=== PATIENT | male | born 1955 | race Caucasian/White ===

== ENCOUNTER 2017-11-13 15:39 | Inpatient (IN) | payer MEDICARE, BC ==
[2017-11-13] MEDS ORDERED: DOCUSATE SODIUM 100 MG CAP PO (16:30)
[2017-11-13] MEDS ORDERED: ZOLPIDEM 5 MG TAB PO (16:30)
[2017-11-13] MEDS ORDERED: NACL 0.9% 3 ML SYG IV (16:30)
[2017-11-13] MEDS ORDERED: MAGNESIUM HYDROXIDE 30ML CUP PO (16:30)
[2017-11-13] MEDS ORDERED: ACETAMINOPHEN 325 MG TAB PO (16:30)
[2017-11-13] MEDS ORDERED: OCULAR LUBRICANT 3.5 GM OPH OINT BOTH EYES (17:00)
[2017-11-13] MEDS ORDERED: ACETAMINOPHEN 650 MG SUPP PR (17:00)
[2017-11-13] MEDS ORDERED: DEXTROSE 50% 50 ML SYRINGE IV ×3 (17:30→18:30)
[2017-11-13] MEDS ORDERED: DILTIAZEM 25 MG INJ IV (17:30)
[2017-11-13] MEDS ORDERED: GLUCAGON 1 MG INJ IM ×2 (17:30→18:30)
[2017-11-13] MEDS ORDERED: GLUCOSE GEL 15 GRAM TUBE BUCCAL (17:30)
[2017-11-13] MEDS ORDERED: GLUCOSE GEL 15 GRAM TUBE PO ×2 (17:30)
[2017-11-13] MEDS ORDERED: COLLAGENASE 5 GM (UD JAR) TOP (17:30)
[2017-11-13] MEDS: Insulin NOVOLOG SS Algorithm ONE SC (18:21)
[2017-11-13] MEDS ORDERED: LABETALOL HCL 20MG INJ IV (18:30)
[2017-11-13] MEDS ORDERED: SODIUM HYPOCHLORITE (1/40) 1 APPLIC BTL IRR (19:00)
[2017-11-13] MEDS ORDERED: NITROGLYCERIN (SL) 0.4 MG TAB SL (19:00)
[2017-11-13] MEDS ORDERED: ONDANSETRON 4 MG INJ IV (19:00)
[2017-11-13] MEDS ORDERED: MICONAZOLE 2% 57 GM Ointment TOP (19:00)
[2017-11-13] MEDS ORDERED: NALOXONE (0.4 MG/ML) INJ IV (19:00)
[2017-11-13] MEDS: ACETYLCYSTEINE 20% 4 ML VIAL INH (21:05)
[2017-11-13] MEDS: IPRATROPIUM (NEB) 0.5 MG/2.5 ML AMP INH (21:05)
[2017-11-13] MEDS: BUDESONIDE (NEB) 0.5MG/2ML AMP INH (21:05)
[2017-11-13] MEDS: LEVALBUTEROL (NEB) 0.63 MG/3 ML AMP INH (21:05)
[2017-11-13] MEDS: FERROUS SULFATE 60 MG/ML 5ML CUP GTB (21:40)
[2017-11-13] MEDS: PANTOPRAZOLE 40 MG INJ IV (21:41)
[2017-11-13] MEDS: METOPROLOL 50 MG TAB GTB (21:41)
[2017-11-13] MEDS: VORICONAZOLE 200 MG TAB GTB (21:41)
[2017-11-13] MEDS: MEROPENEM 500MG/50 ML (PMX) 50 ML IVPB (21:42)
[2017-11-13] MEDS: MICONAZOLE 2% 57 GM Ointment TOP (21:45)
[2017-11-13] MEDS: BALSAM PERU/CASTOR OIL 60 GM TUBE TOP (21:45)
[2017-11-14] MEDS: NYSTATIN SUSP 5 ML CUP PO ×5 (00:55→23:51)
[2017-11-14] MEDS: DILTIAZEM 30 MG TAB PEG ×5 (00:56→23:15)
[2017-11-14] MEDS: IPRATROPIUM (NEB) 0.5 MG/2.5 ML AMP INH ×4 (02:23→20:45)
[2017-11-14] MEDS: LEVALBUTEROL (NEB) 0.63 MG/3 ML AMP INH ×4 (02:23→20:45)
[2017-11-14] MEDS: HYDROCODONE/APAP (5/325) TAB PO (04:09)
[2017-11-14] MEDS: Insulin NOVOLOG SS Algorithm ONE SC ×5 (06:00→23:51)
[2017-11-14] MEDS: METOPROLOL 50 MG TAB GTB ×3 (06:00→22:00)
[2017-11-14 06:11] LABS: ADD MAN DIFF? NO
[2017-11-14 06:13] LABS: WHITE BLOOD COUNT 8.3 10^3/ul (4.8-10.8)
[2017-11-14 06:13] LABS: EOSINOPHILS # 0.1 10^3/ul (0.0-0.5); EOSINOPHILS % 0.6 % (0.0-7.0); HEMATOCRIT 23.9 % (42.0-52.0); HEMOGLOBIN 7.4 g/dl (14.0-18.0); LYMPHOCYTES # 0.8 10^3/ul (0.8-2.9); LYMPHOCYTES % 9.9 % (15.0-51.0); MEAN CORPUSCULAR HEMOGLOBIN 31.9 pg (29.0-33.0); MEAN PLATELET VOLUME 9.7 fl (7.4-10.4); MONOCYTE # 0.8 10^3/ul (0.3-0.9); MONOCYTES % 9.7 % (0.0-11.0); NEUTROPHIL # 6.6 10^3/ul (1.6-7.5); PLATELET COUNT 229 10^3/UL (140-415); RED BLOOD COUNT 2.32 10^6/ul (4.70-6.10); RED CELL DISTRIBUTION WIDTH 18.3 % (11.5-14.5)
[2017-11-14 06:46] LABS: ANION GAP 16 (8-16); BLOOD UREA NITROGEN 78 mg/dl (7-20); CALCIUM 8.8 mg/dl (8.4-10.2); CARBON DIOXIDE 25 mmol/L (21-31); CHLORIDE 103 mmol/L (97-110); CREATININE 2.19 mg/dl (0.61-1.24); GLUCOSE 113 mg/dl (70-220); MAGNESIUM 2.3 mg/dl (1.7-2.5); PHOSPHORUS 5.1 mg/dl (2.5-4.9); POTASSIUM 3.9 mmol/L (3.5-5.1); SODIUM 140 mmol/L (135-144)
[2017-11-14] MEDS: BUDESONIDE (NEB) 0.5MG/2ML AMP INH ×2 (09:10→20:45)
[2017-11-14] MEDS: ACETYLCYSTEINE 20% 4 ML VIAL INH ×2 (09:10→20:45)
[2017-11-14] MEDS: DAPSONE 100 MG TAB GTB (09:23)
[2017-11-14] MEDS: FERROUS SULFATE 60 MG/ML 5ML CUP GTB ×2 (09:23→20:31)
[2017-11-14] MEDS: COLLAGENASE 5 GM (UD JAR) TOP (09:23)
[2017-11-14] MEDS: predniSONE 20 MG TAB GTB (09:23)
[2017-11-14] MEDS: DALIRESP 500 MCG GTB (09:23)
[2017-11-14] MEDS: AMIODARONE 200 MG TAB GTB (09:24)
[2017-11-14] MEDS: VORICONAZOLE 200 MG TAB GTB ×2 (09:24→20:31)
[2017-11-14] MEDS: SODIUM HYPOCHLORITE (1/40) 1 APPLIC BTL IRR (09:25)
[2017-11-14] MEDS: MICONAZOLE 2% 57 GM Ointment TOP ×3 (09:25→20:32)
[2017-11-14] MEDS: BALSAM PERU/CASTOR OIL 60 GM TUBE TOP ×2 (09:25→20:32)
[2017-11-14] MEDS: PANTOPRAZOLE 40 MG INJ IV ×2 (09:25→20:31)
[2017-11-14] MEDS: MEROPENEM 500MG/50 ML (PMX) 50 ML IVPB ×2 (09:25→20:31)
[2017-11-14] MEDS ORDERED: DIGOXIN 0.05 MG/ML GTB (13:00)
[2017-11-14] MEDS: DIGOXIN 0.05 MG/ML GTB (18:11)
[2017-11-15] MEDS: LEVALBUTEROL (NEB) 0.63 MG/3 ML AMP INH ×4 (01:29→20:15)
[2017-11-15] MEDS: IPRATROPIUM (NEB) 0.5 MG/2.5 ML AMP INH ×4 (01:29→20:15)
[2017-11-15] MEDS: METOPROLOL 50 MG TAB GTB ×3 (05:38→22:00)
[2017-11-15] MEDS: DILTIAZEM 30 MG TAB PEG ×3 (05:38→17:08)
[2017-11-15] MEDS: Insulin NOVOLOG SS Algorithm ONE SC ×3 (06:00→17:15)
[2017-11-15] MEDS: NYSTATIN SUSP 5 ML CUP PO ×3 (06:45→17:08)
[2017-11-15 07:58] LABS: ANION GAP 19 (8-16); BLOOD UREA NITROGEN 98 mg/dl (7-20); CALCIUM 8.6 mg/dl (8.4-10.2); CARBON DIOXIDE 23 mmol/L (21-31); CHLORIDE 102 mmol/L (97-110); CREATININE 2.54 mg/dl (0.61-1.24); GLUCOSE 104 mg/dl (70-220); POTASSIUM 3.8 mmol/L (3.5-5.1); SODIUM 140 mmol/L (135-144)
[2017-11-15] MEDS: ACETYLCYSTEINE 20% 4 ML VIAL INH ×2 (08:30→20:16)
[2017-11-15] MEDS: BUDESONIDE (NEB) 0.5MG/2ML AMP INH ×2 (08:30→20:15)
[2017-11-15] MEDS: MEROPENEM 500MG/50 ML (PMX) 50 ML IVPB ×2 (09:36→22:13)
[2017-11-15] MEDS: BALSAM PERU/CASTOR OIL 60 GM TUBE TOP ×2 (09:40→22:15)
[2017-11-15] MEDS: FERROUS SULFATE 60 MG/ML 5ML CUP GTB ×2 (09:40→22:14)
[2017-11-15] MEDS: PANTOPRAZOLE 40 MG INJ IV ×2 (09:40→22:14)
[2017-11-15] MEDS: predniSONE 20 MG TAB GTB (09:42)
[2017-11-15] MEDS: COLLAGENASE 5 GM (UD JAR) TOP (09:42)
[2017-11-15] MEDS: AMIODARONE 200 MG TAB GTB (09:42)
[2017-11-15] MEDS: VORICONAZOLE 200 MG TAB GTB ×2 (09:42→22:14)
[2017-11-15] MEDS: DAPSONE 100 MG TAB GTB (09:42)
[2017-11-15] MEDS: SODIUM HYPOCHLORITE (1/40) 1 APPLIC BTL IRR (10:00)
[2017-11-15 11:32] LABS: PARTIAL THROMBOPLASTIN TIME 25.7 Sec (25.0-35.0); PROTIME 13.3 Sec (11.9-14.9)
[2017-11-15] MEDS: DALIRESP 500 MCG GTB (12:35)
[2017-11-15] MEDS: MICONAZOLE 2% 57 GM Ointment TOP ×3 (12:54→22:16)
[2017-11-16] MEDS: Insulin NOVOLOG SS Algorithm ONE SC
[2017-11-16] MEDS: NYSTATIN SUSP 5 ML CUP PO ×5 (00:01→17:02)
[2017-11-16] MEDS: ALBUMIN HUMAN 25% 100 ML IV (02:03)
[2017-11-16] MEDS: IPRATROPIUM (NEB) 0.5 MG/2.5 ML AMP INH ×4 (02:15→21:28)
[2017-11-16] MEDS: LEVALBUTEROL (NEB) 0.63 MG/3 ML AMP INH ×4 (02:15→21:29)
[2017-11-16] MEDS: DILTIAZEM 30 MG TAB PEG ×6 (02:57→17:02)
[2017-11-16] MEDS: METOPROLOL 50 MG TAB GTB ×3 (03:00→21:05)
[2017-11-16] MEDS: INSULIN ASPART [NOVOLOG] 3 ML PEN SC ×5 (05:00→21:00)
[2017-11-16] MEDS: predniSONE 20 MG TAB GTB ×2 (08:24→14:02)
[2017-11-16] MEDS: FERROUS SULFATE 60 MG/ML 5ML CUP GTB ×3 (08:24→23:17)
[2017-11-16] MEDS: AMIODARONE 200 MG TAB GTB ×2 (08:24→14:01)
[2017-11-16] MEDS: DAPSONE 100 MG TAB GTB ×2 (08:24→14:02)
[2017-11-16] MEDS: VORICONAZOLE 200 MG TAB GTB ×3 (08:24→21:12)
[2017-11-16] MEDS: DALIRESP 500 MCG GTB (08:24)
[2017-11-16] MEDS: SODIUM HYPOCHLORITE (1/40) 1 APPLIC BTL IRR (08:24)
[2017-11-16] MEDS: BALSAM PERU/CASTOR OIL 60 GM TUBE TOP ×2 (08:25→21:11)
[2017-11-16] MEDS: MICONAZOLE 2% 57 GM Ointment TOP ×3 (08:25→21:11)
[2017-11-16] MEDS: COLLAGENASE 5 GM (UD JAR) TOP (08:25)
[2017-11-16] MEDS ORDERED: BACITRACIN 50000 UNITS INJ (08:42)
[2017-11-16] MEDS ORDERED: THROMBIN 5000 UNIT VIAL ×2 (08:44→09:43)
[2017-11-16] MEDS ORDERED: GELATIN SIZE 100 SPONGE (08:44)
[2017-11-16] MEDS ORDERED: BACITRACIN 0.9 GM OINT (08:48)
[2017-11-16] MEDS: ACETYLCYSTEINE 20% 4 ML VIAL INH ×2 (08:56→21:30)
[2017-11-16] MEDS: MEROPENEM 500MG/50 ML (PMX) 50 ML IVPB ×2 (09:00→13:17)
[2017-11-16] MEDS: PANTOPRAZOLE 40 MG INJ IV ×3 (09:00→21:12)
[2017-11-16] MEDS: BUDESONIDE (NEB) 0.5MG/2ML AMP INH ×2 (09:06→20:00)
[2017-11-16 09:20] LABS: ABNORMAL IP MESSAGE 1; HEMATOCRIT 22.3 % (42.0-52.0); MEAN CORPUSCULAR HEMOGLOBIN 31.1 pg (29.0-33.0); MEAN CORPUSCULAR HGB CONC 30.9 g/dl (32.0-37.0); MEAN CORPUSCULAR VOLUME 100.5 fl (82.0-101.0); MEAN PLATELET VOLUME 9.6 fl (7.4-10.4); PLATELET COUNT 216 10^3/UL (140-415); POSITIVE DIFF @See below; RED BLOOD COUNT 2.22 10^6/ul (4.70-6.10); RED CELL DISTRIBUTION WIDTH 17.6 % (11.5-14.5)
[2017-11-16 09:20] LABS: WHITE BLOOD COUNT 7.3 10^3/ul (4.8-10.8)
[2017-11-16] MEDS ORDERED: BACITRACIN/POLYMYXIN 28.35 GM OINT TOP (09:20)
[2017-11-16 09:23] LABS: IMMEDIATE SPIN CROSSMATCH 1 5
[2017-11-16] MEDS: LEVETIRACETAM 1000 MG (PMX) 100 ML IVPB ×2 (09:27→14:01)
[2017-11-16 09:32] LABS: ADD MAN DIFF? YES; HEMOGLOBIN 6.9 g/dl (14.0-18.0); PATH REVIEW? YES
[2017-11-16 10:31] LABS: ANISOCYTOSIS 2+ (0-0); BAND NEUTROPHILS #M 0.1 10^3/ul (0.0-0.6); BAND NEUTROPHILS % (M) 2 % (0-4); LYMPHOCYTES #M 0.5 10^3/ul (0.8-2.9); LYMPHOCYTES % (M) 7 % (15-51); MICROCYTOSIS 2+ (0-0); MONOCYTE #M 0.4 10^3/ul (0.3-0.9); MONOCYTES % (M) 6 % (0-11); PLATELET ESTIMATE NORMAL; POIKILOCYTOSIS 1+ (0-0); POLYCHROMASIA 3+ (0-0); SEG NEUT #M 6.2 10^3/ul (1.6-7.5); SEGMENTED NEUTROPHILS (M) % 85 % (39-77); SMUDGE%M 15 % (0-0)
[2017-11-16] MEDS ORDERED: METOPROLOL 5 MG INJ IV (13:00)
[2017-11-16] MEDS ORDERED: PENDING SANTYL ORDER FOR WOUND CARE XX (18:00)
[2017-11-16 18:44] LABS: CREATINE KINASE 59 IU/L (23-200)
[2017-11-16 18:58] LABS: CK INDEX 20.3
[2017-11-16 19:01] LABS: TROPONIN-I 0.155 ng/ml (0.000-0.120)
[2017-11-17] MEDS: INSULIN ASPART [NOVOLOG] 3 ML PEN SC ×6 (01:00→21:00)
[2017-11-17 01:09] LABS: CREATINE KINASE 63 IU/L (23-200)
[2017-11-17 01:22] LABS: CK INDEX 17.5
[2017-11-17 01:24] LABS: TROPONIN-I 0.182 ng/ml (0.000-0.120)
[2017-11-17] MEDS: LEVALBUTEROL (NEB) 0.63 MG/3 ML AMP INH ×4 (01:42→20:25)
[2017-11-17] MEDS: IPRATROPIUM (NEB) 0.5 MG/2.5 ML AMP INH ×4 (01:42→20:25)
[2017-11-17] MEDS: METOPROLOL 50 MG TAB GTB ×3 (06:01→21:18)
[2017-11-17] MEDS: NYSTATIN SUSP 5 ML CUP PO ×4 (06:01→23:44)
[2017-11-17] MEDS: DILTIAZEM 30 MG TAB PEG ×4 (06:01→23:45)
[2017-11-17] MEDS: HYDROCODONE/APAP (5/325) TAB PO (06:06)
[2017-11-17 06:35] LABS: ADD MAN DIFF? NO
[2017-11-17 06:49] LABS: WHITE BLOOD COUNT 7.4 10^3/ul (4.8-10.8)
[2017-11-17 06:49] LABS: BASOPHILS % 0.1 % (0.0-2.0); EOSINOPHILS # 0.1 10^3/ul (0.0-0.5); EOSINOPHILS % 0.7 % (0.0-7.0); HEMATOCRIT 27.4 % (42.0-52.0); HEMOGLOBIN 8.4 g/dl (14.0-18.0); LYMPHOCYTES # 0.9 10^3/ul (0.8-2.9); LYMPHOCYTES % 11.4 % (15.0-51.0); MEAN CORPUSCULAR HEMOGLOBIN 30.3 pg (29.0-33.0); MEAN CORPUSCULAR HGB CONC 30.7 g/dl (32.0-37.0); MEAN CORPUSCULAR VOLUME 98.9 fl (82.0-101.0); MEAN PLATELET VOLUME 9.4 fl (7.4-10.4); NEUTROPHIL # 5.5 10^3/ul (1.6-7.5); NEUTROPHILS % 74.1 % (39.0-77.0); PLATELET COUNT 225 10^3/UL (140-415); RED BLOOD COUNT 2.77 10^6/ul (4.70-6.10); RED CELL DISTRIBUTION WIDTH 19.8 % (11.5-14.5)
[2017-11-17 07:05] LABS: ANION GAP 15 (8-16); BLOOD UREA NITROGEN 69 mg/dl (7-20); CALCIUM 8.5 mg/dl (8.4-10.2); CARBON DIOXIDE 26 mmol/L (21-31); CHLORIDE 102 mmol/L (97-110); CREATINE KINASE 68 IU/L (23-200); CREATININE 1.94 mg/dl (0.61-1.24); GLUCOSE 97 mg/dl (70-220); SODIUM 139 mmol/L (135-144)
[2017-11-17 07:13] LABS: CK INDEX 17.1
[2017-11-17 07:18] LABS: TROPONIN-I 0.174 ng/ml (0.000-0.120)
[2017-11-17] MEDS: ACETYLCYSTEINE 20% 4 ML VIAL INH ×2 (08:09→20:26)
[2017-11-17] MEDS: BUDESONIDE (NEB) 0.5MG/2ML AMP INH ×2 (08:09→20:26)
[2017-11-17] MEDS: MEROPENEM 500MG/50 ML (PMX) 50 ML IVPB ×2 (09:25→21:16)
[2017-11-17] MEDS: FERROUS SULFATE 60 MG/ML 5ML CUP GTB ×2 (09:26→21:11)
[2017-11-17] MEDS: PANTOPRAZOLE 40 MG INJ IV ×2 (09:26→21:11)
[2017-11-17] MEDS: VORICONAZOLE 200 MG TAB GTB ×2 (09:27→21:11)
[2017-11-17] MEDS: COLLAGENASE 5 GM (UD JAR) TOP (09:27)
[2017-11-17] MEDS: BALSAM PERU/CASTOR OIL 60 GM TUBE TOP ×2 (09:28→21:12)
[2017-11-17] MEDS: SODIUM HYPOCHLORITE (1/40) 1 APPLIC BTL IRR (09:28)
[2017-11-17] MEDS: MICONAZOLE 2% 57 GM Ointment TOP ×3 (09:29→21:12)
[2017-11-17] MEDS: LEVETIRACETAM 1000 MG (PMX) 100 ML IVPB ×2 (09:33→21:11)
[2017-11-17] MEDS: ROFLUMILAST 500 MCG TABLET GTB (11:37)
[2017-11-17] MEDS: DIGOXIN 0.05 MG/ML GTB (12:57)
[2017-11-17] MEDS: ALBUMIN HUMAN 25% 100 ML IV (14:33)
[2017-11-17] MEDS: HEPARIN 1000 UNITS/ML 10 ML INJ CATHETER (15:28)
[2017-11-17] MEDS: EPOETIN 10000 UNITS/1 ML INJ (ESRD) SC (17:25)
[2017-11-17] MEDS: SOD CHLORIDE 0.9% 1,000 ML IV (21:52)
[2017-11-18] MEDS: INSULIN ASPART [NOVOLOG] 3 ML PEN SC ×6 (01:00→21:00)
[2017-11-18] MEDS: IPRATROPIUM (NEB) 0.5 MG/2.5 ML AMP INH ×4 (02:19→20:24)
[2017-11-18] MEDS: LEVALBUTEROL (NEB) 0.63 MG/3 ML AMP INH ×4 (02:19→20:24)
[2017-11-18] MEDS: METOPROLOL 50 MG TAB GTB ×3 (05:42→22:02)
[2017-11-18] MEDS: DILTIAZEM 30 MG TAB PEG ×3 (05:42→18:44)
[2017-11-18] MEDS: NYSTATIN SUSP 5 ML CUP PO ×3 (05:43→19:45)
[2017-11-18 06:48] LABS: ADD MAN DIFF? NO
[2017-11-18 06:54] LABS: BASOPHILS % 0.3 % (0.0-2.0); EOSINOPHILS # 0.1 10^3/ul (0.0-0.5); EOSINOPHILS % 0.8 % (0.0-7.0); HEMATOCRIT 29.8 % (42.0-52.0); HEMOGLOBIN 9.7 g/dl (14.0-18.0); LYMPHOCYTES # 0.8 10^3/ul (0.8-2.9); LYMPHOCYTES % 10.7 % (15.0-51.0); MEAN CORPUSCULAR HEMOGLOBIN 31.1 pg (29.0-33.0); MEAN CORPUSCULAR HGB CONC 32.6 g/dl (32.0-37.0); MEAN CORPUSCULAR VOLUME 95.5 fl (82.0-101.0); MEAN PLATELET VOLUME 9.6 fl (7.4-10.4); MONOCYTE # 0.9 10^3/ul (0.3-0.9); MONOCYTES % 12.2 % (0.0-11.0); NEUTROPHIL # 5.6 10^3/ul (1.6-7.5); NEUTROPHILS % 75.5 % (39.0-77.0); PLATELET COUNT 208 10^3/UL (140-415); RED BLOOD COUNT 3.12 10^6/ul (4.70-6.10); RED CELL DISTRIBUTION WIDTH 19.9 % (11.5-14.5)
[2017-11-18 06:54] LABS: WHITE BLOOD COUNT 7.4 10^3/ul (4.8-10.8)
[2017-11-18] MEDS ORDERED: CEFAZOLIN 1 GM INJ (07:00)
[2017-11-18 07:13] LABS: ANION GAP 14 (8-16); BLOOD UREA NITROGEN 39 mg/dl (7-20); CALCIUM 8.7 mg/dl (8.4-10.2); CARBON DIOXIDE 27 mmol/L (21-31); CHLORIDE 101 mmol/L (97-110); GLUCOSE 90 mg/dl (70-220); MAGNESIUM 1.9 mg/dl (1.7-2.5); PHOSPHORUS 3.6 mg/dl (2.5-4.9); POTASSIUM 3.4 mmol/L (3.5-5.1); SODIUM 139 mmol/L (135-144)
[2017-11-18] MEDS: COLLAGENASE 5 GM (UD JAR) TOP (08:15)
[2017-11-18] MEDS: PANTOPRAZOLE 40 MG INJ IV ×3 (08:15→20:42)
[2017-11-18] MEDS: LEVETIRACETAM 1000 MG (PMX) 100 ML IVPB ×2 (08:15→22:39)
[2017-11-18] MEDS: MEROPENEM 500MG/50 ML (PMX) 50 ML IVPB ×2 (08:15→22:39)
[2017-11-18] MEDS: MICONAZOLE 2% 57 GM Ointment TOP ×2 (08:16)
[2017-11-18] MEDS: BALSAM PERU/CASTOR OIL 60 GM TUBE TOP ×2 (08:16→21:59)
[2017-11-18] MEDS: SODIUM HYPOCHLORITE (1/40) 1 APPLIC BTL IRR (08:17)
[2017-11-18] MEDS: BUDESONIDE (NEB) 0.5MG/2ML AMP INH ×2 (08:22→20:23)
[2017-11-18] MEDS: ACETYLCYSTEINE 20% 4 ML VIAL INH ×2 (08:22→20:24)
[2017-11-18] MEDS: FERROUS SULFATE 60 MG/ML 5ML CUP GTB ×2 (09:00→21:57)
[2017-11-18] MEDS: predniSONE 20 MG TAB GTB (09:00)
[2017-11-18] MEDS: AMIODARONE 200 MG TAB GTB (09:00)
[2017-11-18] MEDS: ROFLUMILAST 500 MCG TABLET GTB (09:00)
[2017-11-18] MEDS: DAPSONE 100 MG TAB GTB (09:00)
[2017-11-18] MEDS: VORICONAZOLE 200 MG TAB GTB ×2 (09:00→21:57)
[2017-11-18] MEDS ORDERED: NEOMYC/POLYMYX/BACIT 30 GM OINT (09:12)
[2017-11-18] MEDS: SOD CHLORIDE 0.9% 1,000 ML IV ×3 (10:00→22:02)
[2017-11-18] MEDS ORDERED: HYDROmorphONE 1 MG/5 ML IV SYRINGE IV ×3 (11:00)
[2017-11-18] MEDS ORDERED: LIDOCAINE 2% (SDV) 5 ML INJ (11:00)
[2017-11-18] MEDS ORDERED: MEPERIDINE 25 MG INJ IV (11:00)
[2017-11-18] MEDS ORDERED: ROCURONIUM 50 MG INJ (11:00)
[2017-11-18] MEDS ORDERED: PROPOFOL 20 ML (11:00)
[2017-11-18] MEDS ORDERED: OXYCODONE/ACETAMINOPHEN (5/325) TAB PO ×2 (11:00)
[2017-11-18] MEDS ORDERED: hydrALAzine 20 MG INJ IV (11:00)
[2017-11-18] MEDS ORDERED: GLYCOPYRROLATE 0.4 MG INJ (11:00)
[2017-11-18] MEDS ORDERED: DIPHENHYDRAMINE 50 MG INJ IV (11:00)
[2017-11-18] MEDS ORDERED: LABETALOL HCL 20MG INJ IV (11:00)
[2017-11-18] MEDS ORDERED: ATROPINE 1 MG/10 ML SYRINGE IV (11:00)
[2017-11-18] MEDS ORDERED: MIDAZOLAM 1 MG/ML 2 ML INJ IV (11:00)
[2017-11-18] MEDS ORDERED: morphine (1 MG/ML) 10ML SYRINGE IV ×3 (11:00)
[2017-11-18] MEDS ORDERED: FENTAnyl 50 MCG/ML VIAL IV ×2 (11:00)
[2017-11-18] MEDS ORDERED: EPHEDrine SULFATE 50 MG/5 ML SYG IV (11:00)
[2017-11-18] MEDS ORDERED: NEOSTIGMINE 3 MG/3 ML SYRINGE (11:00)
[2017-11-18] MEDS ORDERED: ONDANSETRON 4 MG INJ IV (11:00)
[2017-11-18] MEDS ORDERED: MIDAZOLAM 1 MG/ML 2 ML INJ ×2 (11:01→13:50)
[2017-11-18] MEDS ORDERED: FENTAnyl 50 MCG/ML VIAL ×2 (11:03→13:50)
[2017-11-18] MEDS ORDERED: DEXAMETHASONE 4 MG/ML 1 ML INJ (11:03)
[2017-11-18] MEDS ORDERED: ONDANSETRON 4 MG INJ (11:03)
[2017-11-18] MEDS ORDERED: OCULAR LUBRICANT 3.5 GM OPH OINT (13:49)
[2017-11-18] MEDS ORDERED: SUGAMMADEX SODIUM 200 MG/2 ML VIAL IV (13:53)
[2017-11-18] MEDS: LIDOCAINE 1%/EPI 30 ML INJ (14:08)
[2017-11-18] MEDS: BACITRACIN 50000 UNITS INJ IRR (14:37)
[2017-11-18] MEDS: THROMBIN 5000 UNIT VIAL (14:38)
[2017-11-18] MEDS: GELATIN SIZE 100 SPONGE (14:39)
[2017-11-18] MEDS ORDERED: THROMBIN 5000 UNIT VIAL (15:12)
[2017-11-18] MEDS ORDERED: FLUMAZENIL 0.5 MG INJ (15:46)
[2017-11-18] MEDS ORDERED: BACITRACIN 0.9 GM OINT (16:17)
[2017-11-18] MEDS ORDERED: HYDROmorphONE 0.5 MG/0.5 ML SYG IV (17:00)
[2017-11-18] MEDS: CEFAZOLIN 2 GM/50 ML (PMX) 50 ML IVPB (18:31)
[2017-11-18] MEDS ORDERED: MICONAZOLE 2% 30 GM CR TOP (22:30)
[2017-11-18] MEDS: MICONAZOLE 2% 30 GM CR TOP (22:40)
[2017-11-18 23:30] LABS: AADO2 Arterial 125.1 mmHg (7.0-24.0); Allen Test ACCEPTAB; Arterial Base Excess -2.3 mmol/L (-3.0-3); Arterial Blood Gas Oxygen Sat 97.9 mmHG (95.0-98.0); Arterial COHb 0.3 % (0.0-3.0); Arterial Fraction of Oxyhgb 97.2 % (93.0-99.0); Arterial HCO3 21.9 mmol/L (22.0-26.0); Arterial MetHb 0.4 % (0.0-1.5); Arterial Total Hemglobin 10.7 g/dl (12.0-18.0); Arterial pCO2 35.8 mmhg (35-45); MODE TRACH COLLAR; Site Right Radial
[2017-11-19] MEDS: NYSTATIN SUSP 5 ML CUP PO ×4 (00:36→17:07)
[2017-11-19] MEDS: DILTIAZEM 30 MG TAB PEG ×4 (00:36→17:10)
[2017-11-19] MEDS: INSULIN ASPART [NOVOLOG] 3 ML PEN SC ×6 (00:38→21:00)
[2017-11-19] MEDS: IPRATROPIUM (NEB) 0.5 MG/2.5 ML AMP INH ×4 (01:39→20:20)
[2017-11-19] MEDS: LEVALBUTEROL (NEB) 0.63 MG/3 ML AMP INH ×4 (01:39→20:20)
[2017-11-19] MEDS: SOD CHLORIDE 0.9% 1,000 ML IV ×3 (02:36→23:30)
[2017-11-19] MEDS: METOPROLOL 50 MG TAB GTB ×3 (05:23→22:00)
[2017-11-19 05:31] LABS: ABNORMAL IP MESSAGE 1; ADD MAN DIFF? NO; BASOPHILS % 0.1 % (0.0-2.0); HEMATOCRIT 29.2 % (42.0-52.0); HEMOGLOBIN 9.2 g/dl (14.0-18.0); LYMPHOCYTES # 0.5 10^3/ul (0.8-2.9); LYMPHOCYTES % 4.7 % (15.0-51.0); MEAN CORPUSCULAR HEMOGLOBIN 30.3 pg (29.0-33.0); MEAN CORPUSCULAR HGB CONC 31.5 g/dl (32.0-37.0); MEAN CORPUSCULAR VOLUME 96.1 fl (82.0-101.0); MEAN PLATELET VOLUME 9.7 fl (7.4-10.4); MONOCYTE # 0.5 10^3/ul (0.3-0.9); MONOCYTES % 4.8 % (0.0-11.0); NEUTROPHILS % 89.7 % (39.0-77.0); PLATELET COUNT 223 10^3/UL (140-415); POSITIVE DIFF @See below; RED BLOOD COUNT 3.04 10^6/ul (4.70-6.10); RED CELL DISTRIBUTION WIDTH 19.2 % (11.5-14.5)
[2017-11-19 06:22] LABS: ANION GAP 15 (8-16); BLOOD UREA NITROGEN 52 mg/dl (7-20); CALCIUM 8.6 mg/dl (8.4-10.2); CARBON DIOXIDE 22 mmol/L (21-31); CHLORIDE 107 mmol/L (97-110); CREATININE 1.86 mg/dl (0.61-1.24); GLUCOSE 105 mg/dl (70-220); MAGNESIUM 1.9 mg/dl (1.7-2.5); PHOSPHORUS 6.1 mg/dl (2.5-4.9); POTASSIUM 4.2 mmol/L (3.5-5.1); SODIUM 140 mmol/L (135-144)
[2017-11-19] MEDS: BUDESONIDE (NEB) 0.5MG/2ML AMP INH ×3 (08:34→20:45)
[2017-11-19] MEDS: ACETYLCYSTEINE 20% 4 ML VIAL INH ×2 (08:34→20:20)
[2017-11-19] MEDS: FERROUS SULFATE 60 MG/ML 5ML CUP GTB ×2 (09:24→21:20)
[2017-11-19] MEDS: AMIODARONE 200 MG TAB GTB (09:25)
[2017-11-19] MEDS: BALSAM PERU/CASTOR OIL 60 GM TUBE TOP ×2 (09:25→21:26)
[2017-11-19] MEDS: MICONAZOLE 2% 30 GM CR TOP ×3 (09:25→21:25)
[2017-11-19] MEDS: VORICONAZOLE 200 MG TAB GTB (09:25)
[2017-11-19] MEDS: DAPSONE 100 MG TAB GTB (09:26)
[2017-11-19] MEDS: ROFLUMILAST 500 MCG TABLET GTB (09:27)
[2017-11-19] MEDS: SODIUM HYPOCHLORITE (1/40) 1 APPLIC BTL IRR (09:28)
[2017-11-19] MEDS: LEVETIRACETAM 1000 MG (PMX) 100 ML IVPB ×2 (09:29→21:41)
[2017-11-19] MEDS: MEROPENEM 500MG/50 ML (PMX) 50 ML IVPB ×2 (09:29→22:09)
[2017-11-19] MEDS: predniSONE 20 MG TAB GTB (09:56)
[2017-11-19] MEDS: COLLAGENASE 5 GM (UD JAR) TOP (09:56)
[2017-11-19] MEDS: EPOETIN 10000 UNITS/1 ML INJ (ESRD) SC (18:25)
[2017-11-19] MEDS: PANTOPRAZOLE 40 MG INJ IV (21:20)
[2017-11-19] MEDS: HYDROCODONE/APAP (5/325) TAB PO (22:22)
[2017-11-19] MEDS: VORICONAZOLE IVPB (22:57)
[2017-11-19] MEDS: SOD CHLORIDE 0.9% IVPB (22:57)
[2017-11-20] MEDS: NYSTATIN SUSP 5 ML CUP PO ×4 (00:48→17:25)
[2017-11-20] MEDS: DILTIAZEM 30 MG TAB PEG ×4 (00:48→17:21)
[2017-11-20] MEDS: INSULIN ASPART [NOVOLOG] 3 ML PEN SC ×5 (00:51→17:00)
[2017-11-20] MEDS: morphine 2 MG INJ IV ×2 (01:03→05:13)
[2017-11-20] MEDS: IPRATROPIUM (NEB) 0.5 MG/2.5 ML AMP INH ×4 (01:19→19:58)
[2017-11-20] MEDS: LEVALBUTEROL (NEB) 0.63 MG/3 ML AMP INH ×4 (01:19→19:58)
[2017-11-20] MEDS: SOD CHLORIDE 0.9% 1,000 ML IV (05:24)
[2017-11-20] MEDS: METOPROLOL 50 MG TAB GTB ×3 (05:24→21:09)
[2017-11-20 06:55] LABS: ADD MAN DIFF? NO
[2017-11-20 07:07] LABS: BASOPHILS % 0.1 % (0.0-2.0); EOSINOPHILS % 0.4 % (0.0-7.0); HEMATOCRIT 29.2 % (42.0-52.0); HEMOGLOBIN 9.1 g/dl (14.0-18.0); LYMPHOCYTES # 0.6 10^3/ul (0.8-2.9); LYMPHOCYTES % 8.2 % (15.0-51.0); MEAN CORPUSCULAR HEMOGLOBIN 30.7 pg (29.0-33.0); MEAN CORPUSCULAR HGB CONC 31.2 g/dl (32.0-37.0); MEAN CORPUSCULAR VOLUME 98.6 fl (82.0-101.0); MEAN PLATELET VOLUME 9.9 fl (7.4-10.4); MONOCYTE # 0.6 10^3/ul (0.3-0.9); MONOCYTES % 8.7 % (0.0-11.0); NEUTROPHILS % 81.9 % (39.0-77.0); NUCLEATED RED BLOOD CELLS% 0.3 /100WBC (0.0-0.0); PLATELET COUNT 212 10^3/UL (140-415); POSITIVE DIFF @See below; RED BLOOD COUNT 2.96 10^6/ul (4.70-6.10); RED CELL DISTRIBUTION WIDTH 19.2 % (11.5-14.5)
[2017-11-20 07:07] LABS: WHITE BLOOD COUNT 7.4 10^3/ul (4.8-10.8)
[2017-11-20 07:25] LABS: ANION GAP 16 (8-16); BLOOD UREA NITROGEN 57 mg/dl (7-20); CALCIUM 8.6 mg/dl (8.4-10.2); CARBON DIOXIDE 20 mmol/L (21-31); CHLORIDE 108 mmol/L (97-110); CREATININE 2.01 mg/dl (0.61-1.24); GLUCOSE 80 mg/dl (70-220); MAGNESIUM 1.8 mg/dl (1.7-2.5); PHOSPHORUS 6.6 mg/dl (2.5-4.9); SODIUM 140 mmol/L (135-144)
[2017-11-20] MEDS: ACETYLCYSTEINE 20% 4 ML VIAL INH ×2 (08:20→19:59)
[2017-11-20] MEDS: BUDESONIDE (NEB) 0.5MG/2ML AMP INH ×2 (08:20→19:58)
[2017-11-20] MEDS: SODIUM HYPOCHLORITE (1/40) 1 APPLIC BTL IRR (09:00)
[2017-11-20] MEDS: AMIODARONE 200 MG TAB GTB (09:28)
[2017-11-20] MEDS: ROFLUMILAST 500 MCG TABLET GTB (09:28)
[2017-11-20] MEDS: DAPSONE 100 MG TAB GTB (09:28)
[2017-11-20] MEDS: predniSONE 20 MG TAB GTB (09:28)
[2017-11-20] MEDS: PANTOPRAZOLE 40 MG INJ IV ×2 (09:29→21:07)
[2017-11-20] MEDS: FERROUS SULFATE 60 MG/ML 5ML CUP GTB ×2 (09:29→21:07)
[2017-11-20] MEDS: LEVETIRACETAM 1000 MG (PMX) 100 ML IVPB ×2 (09:30→21:07)
[2017-11-20] MEDS: BALSAM PERU/CASTOR OIL 60 GM TUBE TOP ×2 (09:37→21:08)
[2017-11-20] MEDS: COLLAGENASE 5 GM (UD JAR) TOP (09:38)
[2017-11-20] MEDS: MICONAZOLE 2% 30 GM CR TOP ×3 (09:38→21:08)
[2017-11-20] MEDS: MEROPENEM 500MG/50 ML (PMX) 50 ML IVPB ×2 (09:52→21:08)
[2017-11-20] MEDS: VORICONAZOLE IVPB ×2 (10:27→21:08)
[2017-11-20] MEDS: SOD CHLORIDE 0.9% IVPB ×2 (10:27→21:08)
[2017-11-20] MEDS: HYDROCODONE/APAP (5/325) TAB PO (12:33)
[2017-11-20] MEDS: DIGOXIN 0.05 MG/ML GTB (17:22)
[2017-11-21] MEDS: LEVALBUTEROL (NEB) 0.63 MG/3 ML AMP INH ×4 (01:22→19:57)
[2017-11-21] MEDS: IPRATROPIUM (NEB) 0.5 MG/2.5 ML AMP INH ×4 (01:22→19:57)
[2017-11-21] MEDS: SOD CHLORIDE 0.9% 1,000 ML IV ×2 (01:48→13:00)
[2017-11-21] MEDS: DILTIAZEM 30 MG TAB PEG ×4 (01:48→17:18)
[2017-11-21] MEDS: NYSTATIN SUSP 5 ML CUP PO ×4 (01:48→17:17)
[2017-11-21] MEDS: ACETAMINOPHEN 650MG/20.3ML CUP GTB ×2 (01:54→21:33)
[2017-11-21] MEDS: METOPROLOL 50 MG TAB GTB ×3 (05:57→21:14)
[2017-11-21] MEDS: INSULIN ASPART [NOVOLOG] 3 ML PEN SC ×4 (06:00→17:19)
[2017-11-21 06:10] LABS: ADD MAN DIFF? NO
[2017-11-21 06:15] LABS: ABNORMAL IP MESSAGE 1; BASOPHILS % 0.1 % (0.0-2.0); EOSINOPHILS % 0.1 % (0.0-7.0); HEMATOCRIT 27.7 % (42.0-52.0); HEMOGLOBIN 8.7 g/dl (14.0-18.0); LYMPHOCYTES # 0.6 10^3/ul (0.8-2.9); MEAN CORPUSCULAR HEMOGLOBIN 30.6 pg (29.0-33.0); MEAN CORPUSCULAR HGB CONC 31.4 g/dl (32.0-37.0); MEAN CORPUSCULAR VOLUME 97.5 fl (82.0-101.0); MEAN PLATELET VOLUME 9.6 fl (7.4-10.4); MONOCYTE # 0.7 10^3/ul (0.3-0.9); MONOCYTES % 8.5 % (0.0-11.0); NEUTROPHIL # 7.1 10^3/ul (1.6-7.5); NEUTROPHILS % 83.6 % (39.0-77.0); NUCLEATED RED BLOOD CELLS% 0.5 /100WBC (0.0-0.0); PLATELET COUNT 211 10^3/UL (140-415); POSITIVE DIFF @See below; RED BLOOD COUNT 2.84 10^6/ul (4.70-6.10); RED CELL DISTRIBUTION WIDTH 18.6 % (11.5-14.5)
[2017-11-21 06:15] LABS: WHITE BLOOD COUNT 8.5 10^3/ul (4.8-10.8)
[2017-11-21 06:47] LABS: ANION GAP 18 (8-16); BLOOD UREA NITROGEN 61 mg/dl (7-20); CALCIUM 8.4 mg/dl (8.4-10.2); CARBON DIOXIDE 19 mmol/L (21-31); CHLORIDE 108 mmol/L (97-110); GLUCOSE 107 mg/dl (70-220); MAGNESIUM 1.7 mg/dl (1.7-2.5); PHOSPHORUS 6.8 mg/dl (2.5-4.9); POTASSIUM 3.5 mmol/L (3.5-5.1); SODIUM 141 mmol/L (135-144)
[2017-11-21] MEDS: BUDESONIDE (NEB) 0.5MG/2ML AMP INH ×2 (08:23→19:57)
[2017-11-21] MEDS: ACETYLCYSTEINE 20% 4 ML VIAL INH ×2 (08:23→19:58)
[2017-11-21] MEDS: predniSONE 20 MG TAB GTB (09:01)
[2017-11-21] MEDS: PANTOPRAZOLE 40 MG INJ IV ×2 (09:01→21:13)
[2017-11-21] MEDS: COLLAGENASE 5 GM (UD JAR) TOP (09:01)
[2017-11-21] MEDS: ROFLUMILAST 500 MCG TABLET GTB (09:01)
[2017-11-21] MEDS: AMIODARONE 200 MG TAB GTB (09:01)
[2017-11-21] MEDS: FERROUS SULFATE 60 MG/ML 5ML CUP GTB ×2 (09:02→21:13)
[2017-11-21] MEDS: DAPSONE 100 MG TAB GTB (09:02)
[2017-11-21] MEDS: BALSAM PERU/CASTOR OIL 60 GM TUBE TOP ×2 (09:03→21:14)
[2017-11-21] MEDS: MICONAZOLE 2% 30 GM CR TOP ×3 (09:03→21:14)
[2017-11-21] MEDS: LEVETIRACETAM 1000 MG (PMX) 100 ML IVPB ×3 (09:07→22:19)
[2017-11-21] MEDS: MEROPENEM 500MG/50 ML (PMX) 50 ML IVPB ×3 (10:27→22:18)
[2017-11-21] MEDS: SODIUM HYPOCHLORITE (1/40) 1 APPLIC BTL IRR (10:30)
[2017-11-21] MEDS: VORICONAZOLE IVPB ×3 (11:15→22:18)
[2017-11-21] MEDS: SOD CHLORIDE 0.9% IVPB ×3 (11:15→22:18)
[2017-11-21] MEDS: EPOETIN 10000 UNITS/1 ML INJ (ESRD) SC (17:17)
[2017-11-22] MEDS: DILTIAZEM 30 MG TAB PEG ×3 (00:03→11:49)
[2017-11-22] MEDS: NYSTATIN SUSP 5 ML CUP PO ×3 (00:05→11:48)
[2017-11-22] MEDS: LEVALBUTEROL (NEB) 0.63 MG/3 ML AMP INH ×2 (01:38→07:55)
[2017-11-22] MEDS: IPRATROPIUM (NEB) 0.5 MG/2.5 ML AMP INH ×2 (01:38→07:55)
[2017-11-22] MEDS: ONDANSETRON 4 MG INJ IV (02:29)
[2017-11-22] MEDS: morphine 2 MG INJ IV (04:56)
[2017-11-22] MEDS: METOPROLOL 50 MG TAB GTB (05:44)
[2017-11-22] MEDS: INSULIN ASPART [NOVOLOG] 3 ML PEN SC ×3 (06:00→11:51)
[2017-11-22] MEDS: ACETYLCYSTEINE 20% 4 ML VIAL INH (08:09)
[2017-11-22] MEDS: BUDESONIDE (NEB) 0.5MG/2ML AMP INH (08:23)
[2017-11-22] MEDS: COLLAGENASE 5 GM (UD JAR) TOP (08:59)
[2017-11-22] MEDS: predniSONE 20 MG TAB GTB (08:59)
[2017-11-22] MEDS: FERROUS SULFATE 60 MG/ML 5ML CUP GTB (08:59)
[2017-11-22] MEDS: PANTOPRAZOLE 40 MG INJ IV (08:59)
[2017-11-22] MEDS: AMIODARONE 200 MG TAB GTB (09:00)
[2017-11-22] MEDS: MICONAZOLE 2% 30 GM CR TOP ×2 (09:00→09:01)
[2017-11-22] MEDS: ROFLUMILAST 500 MCG TABLET GTB (09:00)
[2017-11-22] MEDS: DAPSONE 100 MG TAB GTB (09:00)
[2017-11-22] MEDS: LEVETIRACETAM 1000 MG (PMX) 100 ML IVPB (09:00)
[2017-11-22] MEDS: BALSAM PERU/CASTOR OIL 60 GM TUBE TOP (09:00)
[2017-11-22] MEDS: SODIUM HYPOCHLORITE (1/40) 1 APPLIC BTL IRR (09:02)
[2017-11-22] MEDS: MEROPENEM 500MG/50 ML (PMX) 50 ML IVPB (10:02)
[2017-11-22] MEDS: VORICONAZOLE IVPB (10:36)
[2017-11-22] MEDS: SOD CHLORIDE 0.9% IVPB (10:36)
[2017-11-22 11:35] LABS: ABNORMAL IP MESSAGE 1; ADD MAN DIFF? NO; BASOPHILS % 0.1 % (0.0-2.0); EOSINOPHILS % 0.3 % (0.0-7.0); HEMATOCRIT 27.3 % (42.0-52.0); HEMOGLOBIN 8.5 g/dl (14.0-18.0); LYMPHOCYTES # 0.5 10^3/ul (0.8-2.9); LYMPHOCYTES % 4.9 % (15.0-51.0); MEAN CORPUSCULAR HEMOGLOBIN 30.7 pg (29.0-33.0); MEAN CORPUSCULAR HGB CONC 31.1 g/dl (32.0-37.0); MEAN CORPUSCULAR VOLUME 98.6 fl (82.0-101.0); MEAN PLATELET VOLUME 9.7 fl (7.4-10.4); MONOCYTE # 0.6 10^3/ul (0.3-0.9); MONOCYTES % 6.6 % (0.0-11.0); NEUTROPHIL # 8.1 10^3/ul (1.6-7.5); NEUTROPHILS % 87.4 % (39.0-77.0); NUCLEATED RED BLOOD CELLS # 0.1 10^3/ul (0.0-0.0); NUCLEATED RED BLOOD CELLS% 0.5 /100WBC (0.0-0.0); PLATELET COUNT 204 10^3/UL (140-415); POSITIVE DIFF @See below; RED BLOOD COUNT 2.77 10^6/ul (4.70-6.10); RED CELL DISTRIBUTION WIDTH 18.7 % (11.5-14.5)
[2017-11-22 11:35] LABS: WHITE BLOOD COUNT 9.2 10^3/ul (4.8-10.8)
[2017-11-22 11:54] LABS: ALANINE AMINOTRANSFERASE 18 IU/L (13-69); ALBUMIN 2.4 g/dl (3.3-4.9); ALBUMIN/GLOBULIN RATIO 0.88; ALKALINE PHOSPHATASE 108 IU/L (42-121); ANION GAP 16 (8-16); ASPARTATE AMINO TRANSFERASE 10 IU/L (15-46); BLOOD UREA NITROGEN 67 mg/dl (7-20); CALCIUM 8.6 mg/dl (8.4-10.2); CARBON DIOXIDE 19 mmol/L (21-31); CHLORIDE 108 mmol/L (97-110); CREATININE 2.37 mg/dl (0.61-1.24); GLUCOSE 107 mg/dl (70-220); POTASSIUM 3.3 mmol/L (3.5-5.1); SODIUM 140 mmol/L (135-144); TOTAL PROTEIN 5.1 g/dl (6.1-8.1)
[2017-11-22] MEDS: LACTULOSE 30ML CUP GTB (12:55)
== END 2017-11-22 13:07 | disposition other institution (70) | DRG 23 ==
LOC: REC 11-18 11:59 → 6WM 11-19 11:16 → TEL 15:39 → ICU 11-18 21:03
PROVIDERS: Internal Medicine
PROC: 00900ZZ Drainage of Brain, Open Approach (ICD-10-PCS; principal; 2017-11-18 12:30)
PROC: 30233N1 Transfusion of Nonautologous Red Blood Cells into Peripheral Vein, Percutaneous Approach (ICD-10-PCS; 2017-11-18 12:44)
DX: G06.0 Intracranial abscess and granuloma (principal); J96.21 Acute and chronic respiratory failure with hypoxia; G93.40 Encephalopathy, unspecified; N18.6 End stage renal disease; G82.50 Quadriplegia, unspecified; N17.9 Acute kidney failure, unspecified; I12.0 Hypertensive chronic kidney disease with stage 5 chronic kidney disease or end stage renal disease; G72.81 Critical illness myopathy; Z99.2 Dependence on renal dialysis; J44.9 Chronic obstructive pulmonary disease, unspecified; L89.150 Pressure ulcer of sacral region, unstageable; G89.29 Other chronic pain; D63.8 Anemia in other chronic diseases classified elsewhere; I25.10 Atherosclerotic heart disease of native coronary artery without angina pectoris; Z87.891 Personal history of nicotine dependence; I48.91 Unspecified atrial fibrillation; Z93.0 Tracheostomy status; Z93.1 Gastrostomy status; R13.10 Dysphagia, unspecified; E83.9 Disorder of mineral metabolism, unspecified; B37.9 Candidiasis, unspecified; L89.629 Pressure ulcer of left heel, unspecified stage; L89.619 Pressure ulcer of right heel, unspecified stage; Z79.51 Long term (current) use of inhaled steroids; R58 Hemorrhage, not elsewhere classified; E78.5 Hyperlipidemia, unspecified; D50.0 Iron deficiency anemia secondary to blood loss (chronic); L89.890 Pressure ulcer of other site, unstageable
CPT/HCPCS: 36430; 36600; 70450; 70553; 71250; 74176; 80048; 80053; 80162; 82550; 82553; 82803; 82962; 83036; 83735; 84100; 84443; 84484; 85025; 85610; 85730; 86850; 86900; 86901; 86920; 87070; 87075; 87102; 87116; 88307; 90935; 93005; 94640; 94664